=== PATIENT | male | born 2000 | race Two or more races ===

== ENCOUNTER 2023-01-21 15:20 | Day surgery (SDC) | payer BC ==
[2023-01-21] MEDS ORDERED: Sodium Chloride 0.9% 10 ML Syringe FLUSH PRN (16:23)
[2023-01-21] MEDS ORDERED: HYDROmorphone 0.5 MG/0.5 ML Syringe IVPUSH ONE (16:23)
[2023-01-21] MEDS ORDERED: Ondansetron 4 MG/2 ML SDV IVPUSH ONE (16:23)
[2023-01-21] MEDS ORDERED: Iopamidol 612 MG/ML 100 ML Bottle IARTIC ONE (16:29)
[2023-01-21] MEDS ORDERED: Sodium Chloride 0.9% 10 ML Syringe FLUSH SCH (16:30)
[2023-01-21] MEDS ORDERED: Sodium Chloride 0.9% 1,000 ML IV SCH (16:30)
[2023-01-21 17:15] LABS: BASOPHILS PERCENT AUTO 0.2 % (0.0-1.0); HEMATOCRIT 40.4 % (42.0-52.0); HEMOGLOBIN 13.4 gm/dl (14.0-18.0); IMMATURE GRAN ABSOLUTE AUTO 0.04 K/mm3 (0.00-0.05); IMMATURE GRAN PERCENT AUTO 0.3 % (0.0-0.4); LYMPHOCYTES ABSOLUTE AUTO 0.4 K/mm3 (1.0-4.8); MEAN CORPUSCULAR HEMOGLOBIN 27.8 pg (28.0-32.0); MEAN CORPUSCULAR HGB CONC 33.2 g/dl (32.0-36.0); MEAN CORPUSCULAR VOLUME 83.8 fl (83.0-99.0); MEAN PLATELET VOLUME 9.3 fl (9.4-12.4); MONOCYTES PERCENT AUTO 7.3 % (0.0-8.0); NEUTROPHILS ABSOLUTE AUTO 12.2 K/mm3 (1.8-7.7); NEUTROPHILS PERCENT AUTO 89.2 % (41.0-71.0); PLATELET COUNT,PLT 219 K/mm3 (150-400); RED BLOOD CELL COUNT 4.82 M/mm3 (4.52-5.90); WHITE BLOOD CELL COUNT,WBC 13.72 K/mm3 (3.9-11.3)
[2023-01-21] MEDS ORDERED: Piperacillin/Tazobactam 4.5 GM in Sodium Chloride 0.9% 100 ML IV ONE (17:22)
[2023-01-21] MEDS ORDERED: Lactated Ringers 1,000 ML ONE ×2 (17:45→19:07)
[2023-01-21 17:47] LABS: A/G RATIO 1.4 (1-2); ALBUMIN 4.3 g/dl (3.4-5.0); ANION GAP 12.4 (5-15); BILIRUBIN TOTAL 1.1 mg/dL (0.2-1.0); C-REACTIVE PROTEIN 1.2 mg/dL (<1.0); EST CRCL DRUG DOSING (CG) 109.25 mL/min; POTASSIUM,K 3.4 mEq/L (3.5-5.1); PROTEIN TOTAL,TP 7.4 g/dl (6.4-8.2)
[2023-01-21] MEDS ORDERED: Ondansetron 4 MG/2 ML SDV IVPUSH PRN (17:54)
[2023-01-21] MEDS ORDERED: HYDROmorphone 0.5 MG/0.5 ML Syringe IVPUSH PRN (17:54)
[2023-01-21] MEDS ORDERED: fentaNYL 100 MCG/2 ML SDV IVPUSH PRN (17:54)
[2023-01-21] MEDS ORDERED: Bupivacaine 0.5% 30 ML SDV ONE (17:56)
[2023-01-21] MEDS ORDERED: Lidocaine 1% 30 ML SDV ONE (17:57)
[2023-01-21] MEDS ORDERED: Midazolam 1 MG/ML 2 ML SDV ONE (18:06)
[2023-01-21] MEDS ORDERED: Lidocaine 1% 5 ML VIAL ONE (18:06)
[2023-01-21] MEDS ORDERED: Ondansetron 4 MG/2 ML SDV ONE (18:06)
[2023-01-21] MEDS ORDERED: Propofol 200 MG/20 ML SDV ONE (18:06)
[2023-01-21] MEDS ORDERED: Rocuronium 50 MG/5 ML Vial ONE (18:06)
[2023-01-21] MEDS ORDERED: fentaNYL 250 MCG/5 ML SDV ONE (18:06)
[2023-01-21] MEDS ORDERED: EPINEPHrine 1 MG/ML SDV ONE (18:14)
[2023-01-21 18:32] LABS: APPEARANCE,URINE CLEAR (Clear); BILIRUBIN,URINE NEGATIVE (Negative); COLOR,URINE YELLOW (Yellow); GLUCOSE,URINE NEGATIVE (Negative); KETONES,URINE 1+ (Negative); LEUKOCYTE ESTERASE,URINE NEGATIVE (Negative); NITRITE,URINE NEGATIVE (Negative); OCCULT BLOOD,URINE NEGATIVE (Negative); PROTEIN,URINE NEGATIVE (Negative); UROBILINOGEN,URINE 0.2 (0.2-1.0)
[2023-01-21] MEDS ORDERED: Dexamethasone 4 MG/ML 5 ML MDV ONE (18:34)
[2023-01-21] MEDS ORDERED: Neostigmine Methylsulfate 10 MG/10 ML MDV ONE (18:39)
[2023-01-21 18:56] LABS: BACTERIA,URINE OCCASIONAL /hpf (FEW); MUCUS,URINE FEW /hpf (FEW); RBC,URINE NOT SEEN /hpf (0-5); SQUAMOUS EPITHELIAL CELLS,UR NOT SEEN /hpf (0-5); WBC,URINE NOT SEEN /hpf (0-5)
[2023-01-21] MEDS ORDERED: Ketorolac 30 MG/ML SDV ONE (19:32)
== END 2023-01-21 21:45 | disposition home or self-care (01) ==
LOC: JD.ED 15:20 → JD.SDS 17:27
PROVIDERS: ATTEND Surgery
DX: K35.30 Acute appendicitis with localized peritonitis, without perforation or gangrene (principal); J45.909 Unspecified asthma, uncomplicated; Z87.891 Personal history of nicotine dependence
CPT/HCPCS: 36415; 44970; 74177; 80053; 81001; 83605; 85025; 86140; 96361; 96374; 96375; 99285; J0171; J1100; J1170; J1885; J2250; J2405; J2543; J2704; J2710; J3010; J3490; J7030; J7120; Q9967; 00840; 99140